=== PATIENT | male | born 1955 | race Two or more races ===

== ENCOUNTER 2025-01-19 08:13 | Emergency (ER) | payer MEDICARE ==
[2025-01-19] MEDS ORDERED: Sodium Chloride 0.9% 10 ML Syringe FLUSH PRN (08:43)
[2025-01-19 08:46] LABS: BASOPHILS ABSOLUTE AUTO 0.1 K/mm3 (0.0-0.2); BASOPHILS PERCENT AUTO 0.5 % (0.0-1.0); EOSINOPHILS ABSOLUTE AUTO 0.0 K/mm3 (0.0-0.4); EOSINOPHILS PERCENT AUTO 0.3 % (0.0-6.0); IMMATURE GRAN ABSOLUTE AUTO 0.06 K/mm3 (0.00-0.05); IMMATURE GRAN PERCENT AUTO 0.5 % (0.0-0.4); LYMPHOCYTES ABSOLUTE AUTO 1.3 K/mm3 (1.0-4.8); LYMPHOCYTES PERCENT AUTO 11.0 % (24.0-44.0); MEAN PLATELET VOLUME 9.1 fl (9.4-12.4); MONOCYTES ABSOLUTE AUTO 0.6 K/mm3 (0.0-0.8); MONOCYTES PERCENT AUTO 5.1 % (0.0-8.0); NEUTROPHILS ABSOLUTE AUTO 9.9 K/mm3 (1.8-7.7); NEUTROPHILS PERCENT AUTO 82.6 % (41.0-71.0); NRBC ABSOLUTE 0.00 (0.00-0.02); NRBC PERCENT 0.0 % (0.0-0.2); PLATELET COUNT,PLT 381 K/mm3 (150-400); RED BLOOD CELL COUNT 5.32 M/mm3 (4.52-5.90); WHITE BLOOD CELL COUNT,WBC 11.98 K/mm3 (3.9-11.3)
[2025-01-19] MEDS: Ondansetron 4 MG/2 ML SDV IVPUSH ONE (08:53)
[2025-01-19 08:59] LABS: INR 1.0
[2025-01-19 09:00] LABS: PTT,PARTIAL THROMBOPLSTIN TIME 26.4 SECONDS (21.7-31.4)
[2025-01-19 09:04] LABS: A/G RATIO 0.8 (1-2); ALANINE AMINOTRANSFERASE,ALT 72.0 U/L (16-63); ASPARTATE AMNIOTRANSFERASE,AST 132.0 U/L (15-37); BILIRUBIN TOTAL 1.3 mg/dL (0.2-1.0); BLOOD UREA NITROGEN,BUN 15.0 mg/dL (7-18); CARBON DIOXIDE,CO2 31.0 mEq/L (21-32); CHLORIDE,CL 102.0 mEq/L (98-107); CREATININE 1.2 mg/dL (0.7-1.3); EST CRCL DRUG DOSING (CG) 42.98 mL/min; ESTIMATED GFR 65.0 mL/min (>60); ETHANOL BLOOD MEDICAL 0.0 gm% (0.00); GLUCOSE RANDOM 132.0 mg/dL (70-99); POTASSIUM,K 3.5 mEq/L (3.5-5.1); PROTEIN TOTAL,TP 7.9 g/dl (6.4-8.2); SODIUM,NA 141.0 mEq/L (136-145)
[2025-01-19] MEDS: Sodium Chloride 0.9% 10 ML Syringe FLUSH PRN (09:18)
[2025-01-19] MEDS: Iopamidol 612 MG/ML 100 ML Bottle IVPUSH ONE (09:19)
== END 2025-01-19 14:20 | disposition home or self-care (01) ==
LOC: JD.ED 08:13
DX: K80.21 Calculus of gallbladder without cholecystitis with obstruction (principal); K20.90 Esophagitis, unspecified without bleeding; E86.0 Dehydration; I10 Essential (primary) hypertension; K21.9 Gastro-esophageal reflux disease without esophagitis; E11.9 Type 2 diabetes mellitus without complications
CPT/HCPCS: 36415; 74177; 74177-26; 76705; 76705-26; 80053; 80307; 83690; 85025; 85610; 85730; 96361; 96374; 96375; 99284; 99285-25; J2405; J2470; J7030; Q9967